=== PATIENT | female | born 1965 | race Asian ===

== ENCOUNTER 2016-07-05 09:04 | Outpatient (CLI) | payer MEDICAID ==
--- NOTE | 2016-07-05 10:51 | Mammography Report ---
BILATERAL DIGITAL SCREENING MAMMOGRAM with CAD : 07/05/16 09:04:00 CLINICAL: Routine screening.Known bilateral cysts. COMPARISON:05/05/15 FINDINGS: The breasts are heterogeneously dense, which may obscure small masses.Previously documented cyst in the right breast are unchanged. The previous palpable left cyst has resolved. No mass, architectural distortion or suspicious calcifications. IMPRESSION: No mammographic evidence of malignancy. BI-RADS CATEGORY: 2 -- Benign RECOMMENDATION: Routine mammographic screening in one year. COMMENT: Patient follow-up letters are generated by our [employer] application.
== END 2016-07-05 09:05 | disposition home or self-care (01) ==
LOC: SPVWC 09:04
PROVIDERS: ATTEND Family Medicine
DX: Z12.31 Encounter for screening mammogram for malignant neoplasm of breast (principal)
CPT/HCPCS: 77067; G0202

== ENCOUNTER 2017-04-03 08:20 | Outpatient (CLI) | payer MEDICAID ==
--- NOTE | 2017-04-03 16:39 | Mammography Report ---
BILATERAL DIGITAL DIAGNOSTIC MAMMOGRAM with CAD and RIGHT BREAST ULTRASOUND: 04/03/17 CLINICAL: Right breast lump and pain. COMPARISON:07/05/16 FINDINGS: The breasts are heterogeneously dense, which may obscure small masses. A partially circumscribed oval cyst correlates with a previously confirmed cyst and also correlates with the symptomatic palpable lump. no architectural distortion or suspicious calcifications. The left breast is negative. Ultrasound of the right breast (including all four quadrants and the retroareolar area) was performed and demonstrated multiple cysts and no solid mass. An oval cyst at 10 o'clock 4.5 cm from the nipple has a well developed wall and correlates with the tender palpable lump. It measures 3.1 x 2.3 x 2.7 cm compared to 2.7 x 2.5 x 1.0 cm on a previous ultrasound. Several additional smaller benign cysts of the right breast. IMPRESSION: Right benign cysts with a dominant palpable tender 3.1 cm cyst at 10 o'clock 4.5 cm from the nipple. BI-RADS CATEGORY: 2 -- Benign RECOMMENDATION: Ultrasound guided needle aspiration of the symptomatic cyst in the right breast. ACR BI-RADS MAMMOGRAPHIC CODES: 0 = Needs additional imaging evaluation; 1 = Negative; 2 = Benign; 3 = Probably benign; 4 = Suspicious; 5 = Malignant; 6 = Known biopsy-proven malignancy COMMENT: 1. Dense breast tissue, i.e., adenosis, fibrocystic changes, etc., may obscure an underlying neoplasm. 2. Approximately 10% of cancers are not detected with mammography. 3. A negative mammography report should not delay biopsy if a clinically suspicious mass is present. COMMENT: Patient follow-up letters are generated by our [employer] application.
== END 2017-04-03 08:21 | disposition home or self-care (01) ==
LOC: SPVWC 08:20
PROVIDERS: ATTEND Family Medicine
DX: N60.01 Solitary cyst of right breast (principal)
CPT/HCPCS: 77066

== ENCOUNTER 2017-12-05 10:00 | Observation (INO) | payer MEDICAID ==
--- NOTE | 2017-12-05 10:42 | Anesthesia Consultation ---
Anesthesia Consult and Med Hx Date of service: 12/05/17 - Airway Anesthetic Teeth Evaluation: Good ROM Head & Neck: Adequate Mental/Hyoid Distance: Adequate Mallampati Class: Class II Intubation Access Assessment: Probably Good - Pulmonary Exam CTA: Yes - Cardiac Exam Cardiac Exam: RRR - Pre-Operative Health Status ASA Pre-Surgery Classification: ASA2 Proposed Anesthetic Plan: General Nerve Block: tap block - Cardiovascular System Hx Hypertension: Yes (x 5yrs) - Central Nervous System Hx Psychiatric Problems: No - Hematic Hx Anemia: Yes - Other Systems Hx Alcohol Use: Yes (Occas) Hx Cancer: No
[2017-12-05 10:52] LABS: Basophils # (Auto) 0.1 K/mm3 (0.0-0.1); Basophils % (Auto) 1.3 % (0.0-1.8); Eosinophils # (Auto) 0.2 K/mm3 (0.0-0.4); Eosinophils % (Auto) 2.9 % (0.0-4.3); Hematocrit 32.8 % (30.3-42.9); Hemoglobin 10.1 gm/dl (10.1-14.3); Lymphocytes # (Auto) 1.5 K/mm3 (1.2-5.4); Mean Corpuscular HGB Conc 31 % (30-34); Mean Corpuscular Volume 74 fl (79-97); Monocytes # (Auto) 0.6 K/mm3 (0.0-0.8); Monocytes % (Auto) 7.4 % (0.0-7.3); Platelet Count 478 K/mm3 (140-440); Red Blood Count 4.42 M/mm3 (3.65-5.03); Red Cell Distribution Width 17.7 % (13.2-15.2)
[2017-12-05 10:53] LABS: Mean Corpuscular Hemoglobin 23 pg (28-32)
[2017-12-05 11:19] LABS: BUN/Creatinine Ratio 13; Blood Urea Nitrogen 9 mg/dL (7-17); Calcium 9.3 mg/dL (8.4-10.2); Hemolysis Index 2
[2017-12-09] MEDS ORDERED: VERSED IV NR (06:00)
[2017-12-09] MEDS ORDERED: PEPCID IV NR (06:00)
[2017-12-09] MEDS ORDERED: TRANSDERM-SCOP TD NR (06:00)
[2017-12-09] MEDS ORDERED: LACTATED RINGERS 1,000 ML IV SCH ×2 (06:00→11:00)
[2017-12-09] MEDS ORDERED: NEURONTIN PO NR (06:00)
--- NOTE | 2017-12-09 08:06 | History and Physical Report ---
History of Present Illness Date of examination: 12/09/17 Date of admission: 12/09/17 07:36 Chief complaint: Post menopausal bleeding with uterine fibroids History of present illness: Hero Mobley is a 52-year-old black female LMP 11/24/2017 who presents for surgical evaluation of postmenopausal bleeding with uterine fibroids. Pelvic ultrasound showed the uterus to be measuring 15 x 8 x 7 cm with 6 fibroids, an endometrial biopsy was benign. Patient is therefore scheduled for a Total Abdominal Hysterectomy and she desires ovarian conservation. 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 Family/Genetic History: none Social history: no significant social history Medications and Allergies Allergies Allergy/AdvReac Type Severity Reaction Status Date / Time amoxicillin Allergy Rash Verified 12/02/17 17:05 Home Medications Medication Instructions Recorded Confirmed Last Taken Type Aspirin [Aspirin EC] 81 mg PO DAILY 12/02/17 12/02/17 11/30/17 History Cholecalciferol (Vitamin D3) 5,000 unit PO DAILY 12/02/17 12/02/17 12/08/17 History [Vitamin D3] Ferrous Sulfate [Iron] 325 mg PO BID 12/02/17 12/02/17 12/08/17 History Losartan/Hydrochlorothiazide 1 tab PO DAILY 12/02/17 12/02/17 12/08/17 History Metformin HCl 1,000 mg PO BID 12/02/17 12/02/17 12/08/17 History Ondansetron [Zofran TAB] 4 mg PO Q8HR PRN 12/02/17 12/02/17 12/08/17 History Ranitidine HCl [Zantac 150 MG TAB] 150 mg PO BID 12/02/17 12/02/17 12/08/17 History Terbinafine (Nf) [LamiSIL] 250 mg PO QDAY PRN 12/02/17 12/02/17 12/08/17 History amLODIPine [Norvasc] 5 mg PO DAILY 12/02/17 12/09/17 12/09/17 06:30 History Active Meds: Active Medications Celecoxib (Celebrex) 200 mg PO PREOP NR Stop: 12/09/17 23:59 Famotidine (Pepcid) 20 mg IV PREOP NR Stop: 12/09/17 23:59 Gabapentin (Neurontin) 300 mg PO PREOP NR Stop: 12/09/17 23:59 Lactated Ringer's (Lactated Ringers) 1,000 mls @ 100 mls/hr IV DIRECT KEITH Midazolam HCl (Versed) 2 mg IV PREOP NR Stop: 12/09/17 23:59 Scopolamine (Transderm-Scop) 1 each TD PREOP NR Stop: 12/09/17 23:59 Review of Systems All systems: negative - Vital Signs Vital signs: Vital Signs Temp Pulse Resp BP 98 F 84 18 160/92 12/05/17 10:30 12/05/17 10:30 12/05/17 10:30 12/05/17 10:30 Temp Pulse Resp BP Pulse Ox 98 F 84 18 160/92 12/05/17 10:30 12/05/17 10:30 12/05/17 10:30 12/05/17 10:30 - Physical Exam Breasts: Positive: deferred Cardiovascular: Regular rate Lungs: Positive: Clear to auscultation Abdomen: Positive: normal appearance, mass Genitourinary (Female): Positive: normal external genitalia Vagina: Positive: normal moisture Uterus: Positive: enlarged Extremities: Positive: normal Results Result Diagrams: 12/05/17 10:35 12/05/17 10:35 All other labs normal. Ultrasound: report reviewed Assessment and Plan - Patient Problems (1) Postmenopausal bleeding Onset Date: 12/09/17 Current Visit: Yes Status: Acute Plan to address problem: A: Postmenopausal bleeding Uterine fibroids Chronic hypertension Diabetes mellitus P: Will admit for a Total Abdominal Hysterectomy with bilateral salpingectomy (2) Intramural uterine fibroid Onset Date: 12/09/17 Current Visit: Yes Status: Acute (3) Hypertension Onset Date: 12/09/17 Current Visit: Yes Status: Acute Qualifiers: Hypertension type: essential hypertension Qualified Code(s): I10 - Essential (primary) hypertension (4) Diabetes mellitus Onset Date: 12/09/17 Current Visit: Yes Status: Acute Qualifiers: Diabetes mellitus type: type 2 Diabetes mellitus 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
[2017-12-09] MEDS ORDERED: GARAMYCIN 160 MG in NACL 0.9% 100 ML IV SCH (08:15)
[2017-12-09] MEDS ORDERED: LACTATED RINGERS 1,000 ML ONE ×2 (08:55→11:28)
[2017-12-09] MEDS ORDERED: DIPRIVAN 10 MG/ML IV ONE (08:59)
[2017-12-09] MEDS ORDERED: CLEOCIN 600 MG/50 mL 600 MG/50 ML BAG IV SCH (09:00)
[2017-12-09] MEDS ORDERED: TRANSDERM-SCOP TD ONE (09:36)
[2017-12-09] MEDS ORDERED: NEURONTIN ONE (09:37)
[2017-12-09] MEDS ORDERED: PEPCID IV ONE (09:37)
[2017-12-09] MEDS ORDERED: VERSED ONE (09:37)
[2017-12-09] MEDS ORDERED: SUBLIMAZE ONE ×2 (09:51→10:48)
[2017-12-09] MEDS ORDERED: MARCAINE 0.5% INFILTRATI ONE (09:56)
[2017-12-09] MEDS ORDERED: ACD-A 500 ML IV ONE (10:35)
[2017-12-09] MEDS ORDERED: NACL 0.9% IR ONE (10:50)
[2017-12-09] MEDS ORDERED: DILAUDID IV PRN ×2 (10:51→12:43)
[2017-12-09] MEDS ORDERED: ZOFRAN IV PRN ×2 (10:51→12:05)
--- NOTE | 2017-12-09 10:51 | Anesthesia Day of Surgery ---
Anesthesia Day of Surgery - Day of Surgery Patient Examined: Yes Patient H&P Reviewed: Yes Patient is NPO: Yes
[2017-12-09] MEDS ORDERED: XYLOCAINE MPF 2% ONE (11:08)
[2017-12-09] MEDS ORDERED: QUELICIN ONE (11:09)
[2017-12-09] MEDS ORDERED: ZEMURON IV ONE (11:09)
[2017-12-09] MEDS ORDERED: DECADRON ONE (11:09)
[2017-12-09] MEDS ORDERED: ZOFRAN ONE (11:09)
[2017-12-09] MEDS ORDERED: ROBINUL ONE (11:10)
[2017-12-09] MEDS ORDERED: BLOXIVERZ ONE (11:10)
[2017-12-09] MEDS ORDERED: NORCO 5/325 PO PRN (12:05)
[2017-12-09] MEDS ORDERED: TYLENOL PO PRN (12:05)
--- NOTE | 2017-12-09 12:34 | Operative Report ---
Operative Report Operative Report: Date of procedure: 12/09/2017 Pre-operative diagnosis: 1. Postmenopausal bleeding 2. Symptomatic uterine fibroids Post-operative diagnosis: Same Procedure name(s): Total abdominal hysterectomy with bilateral salpingectomy Surgeon: Bobby Armendariz MD Batter Depositor: Lo De Leon CSA Anesthesia: CRISTA Block followed by general endotracheal intubation by Dr. Zee EBL: 100 mL Findings: A 14-16 week size multi-myomatous uterus with normal tubes and atrophic ovaries bilaterally. Procedure: After the patient was first correctly identified and after general anesthesia was administered she was prepped and draped in usual in the usual sterile fashion and placed in the dorsolithotomy position. The skin knife was used to make a transverse skin incision. The incision was extended down to the layer of the fascia which was nicked in the midline and extended laterally using Bovie cautery. The rectus muscles were dissected off the rectus fascia both superiorly and inferiorly, the rectus bellies in the midline and the peritoneum was entered under direct visualization. Exploration of the pelvic organs found the uterus to be enlarged and the tubes and ovaries were normal bilaterally. Next the bowels were packed back and the right round ligament was clamped, cauterized and cut using the Enseal device. The right utero-ovarian ligament was also clamped, cauterized and cut, thus freeing the right ovary from the right uterine sidewall. The same procedure was performed on the left. The left round ligament was clamped, cauterized and cut using the Enseal device, and the left utero-ovarian ligament was clamped, cauterized and cut thus freeing the left ovary from the left uterine sidewall. The uterine vessels were then skeletonized bilaterally, and the bladder flap was taken down anteriorly. The uterine vessels were then doubly clamped cut and suture ligated bilaterally, and the cardinal ligaments were sequentially clamped cut and suture ligated down to the level of the uterosacral ligaments. The cervix was then amputated from the vaginal cuff and the specimen was handed off the surgical field. The vaginal cuff was then made hemostatic using several sutures of 0 Vicryl suture in a [id number] configuration. After excellent hemostasis was assured copious amounts of irrigation was then performed. The Tisseel sealant was then sprayed across the vaginal cuff and the superior pedicles bilaterally and after excellent hemostasis was assured the procedure was considered complete. All instruments removed from abdomen, and the peritoneum was closed using 0 Vicryl suture in a running interlocking fashion and the rectus muscles were also loosely re-approximated using 0 Vicryl suture in a [id number] configuration. The fascia was then re-approximated using # 1 Vicryl suture in a running interlocking fashion, the subcutaneous layer made hemostatic using Bovie cautery and the skin edges re-approximated using 4-0 Vicryl suture in a sub-cuticular fashion. Patient tolerated the procedure well was transported to recovery room in stable condition.
--- NOTE | 2017-12-09 12:44 | Post Anesthesia Evaluation ---
- Post Anesthesia Evaluation Patient Participated: Yes Airway Patent: Yes Stable Respiratory Function: Yes Nausea/Vomiting: No Temp > 96.8F: Yes Pain Manageable: Yes Adequeate Hydration: Yes Anesthesia Complications: No
[2017-12-09] MEDS ORDERED: TORADOL ONE (12:46)
[2017-12-09] MEDS ORDERED: DILAUDID ONE (12:47)
[2017-12-09] MEDS: TORADOL IV SCH ×2 (12:48→18:39)
[2017-12-09] MEDS ORDERED: D5LR 1,000 ML IV SCH (13:00)
[2017-12-09] MEDS: GLUCOPHAGE PO SCH (17:54)
[2017-12-09] MEDS ORDERED: GLUCOPHAGE ONE (18:01)
[2017-12-09] MEDS: CLEOCIN 600 MG/50 mL 600 MG/50 ML BAG IV SCH (18:40)
[2017-12-09] MEDS ORDERED: AFLURIA QUAD 2018-2019 SYRINGE IM ONE (19:32)
[2017-12-09] MEDS: GARAMYCIN/NS 80 MG/100 ML 100 ML IV SCH (20:13)
[2017-12-09] MEDS: HumuLIN R SUB-Q SCH (21:55)
[2017-12-09] MEDS ORDERED: D50W (25GM) Syringe IV PRN (23:44)
[2017-12-10] MEDS: TORADOL IV SCH ×3 (02:15→13:00)
[2017-12-10] MEDS: CLEOCIN 600 MG/50 mL 600 MG/50 ML BAG IV SCH (02:19)
[2017-12-10] MEDS: GARAMYCIN/NS 80 MG/100 ML 100 ML IV SCH (03:00)
[2017-12-10 04:00] LABS: Hemoglobin 9.2 gm/dl (10.1-14.3)
[2017-12-10] MEDS: PERCOCET 5/325 PO PRN ×3 (06:10→21:30)
[2017-12-10] MEDS: HumuLIN R SUB-Q SCH ×3 (07:30→23:06)
--- NOTE | 2017-12-10 08:48 | Progress Note ---
Assessment and Plan - Patient Problems (1) Postmenopausal bleeding Onset Date: 12/09/17 Current Visit: Yes Status: Resolved (2) Intramural uterine fibroid Onset Date: 12/09/17 Current Visit: Yes Status: Resolved (3) Hypertension Onset Date: 12/09/17 Current Visit: Yes Status: Chronic Qualifiers: Hypertension type: essential hypertension Qualified Code(s): I10 - Essential (primary) hypertension (4) Diabetes mellitus Onset Date: 12/09/17 Current Visit: Yes Status: Chronic Qualifiers: Diabetes mellitus type: type 2 Diabetes mellitus nursing home insulin use: without nursing home use Diabetes mellitus complication status: with hyperglycemia Qualified Code(s): E11.65 - Type 2 diabetes mellitus with hyperglycemia (5) S/P GIOVANNY (total abdominal hysterectomy) Onset Date: 12/10/17 Current Visit: Yes Status: Resolved Plan to address problem: A: S/P GIOVANNY - POD #1 Doing well Asymptomatic anemia - stable P: Continue RPOC Anticipate discharge in 24-48hrs Subjective - Subjective Date of service: 12/10/17 Principal diagnosis: s/p GIOVANNY - POD #1 Interval history: Pt is feeling well s/p a Total Abdominal Hysterectomy. Discussed findings at surgery. Pt complains of a sore throat otherwise tolerating a liquid diet without nausea or vomiting. Patient reports: appetite normal, voiding normally, pain well controlled, ambulating normally, no dizzy ambulation, no flatus, no nauseated Objective - Vital Signs Latest vital signs: Vital Signs Temp Pulse Pulse Resp BP Pulse Ox 12/10/17 07:33 98.8 F 78 20 111/60 94 12/10/17 06:10 18 12/10/17 04:03 98.4 F 80 16 110/62 100 12/10/17 02:15 18 12/09/17 23:28 98.6 F 85 15 103/55 99 12/09/17 19:45 18 98 12/09/17 19:26 98.7 F 96 H 8 L 119/75 100 12/09/17 19:09 18 12/09/17 16:28 98.2 F 93 H 20 106/70 99 12/09/17 15:30 16 12/09/17 13:30 72 16 100 12/09/17 13:15 85 16 119/76 100 12/09/17 13:00 80 13 124/75 100 12/09/17 12:45 79 18 127/79 100 12/09/17 12:40 91 H 13 140/74 100 12/09/17 12:35 78 17 133/79 100 12/09/17 12:30 79 19 137/80 100 12/09/17 12:25 81 19 130/79 100 12/09/17 12:21 97.2 F L 81 16 127/77 100 12/09/17 10:20 88 14 140/88 100 12/09/17 10:15 87 12 139/95 100 12/09/17 10:10 92 H 15 145/82 100 12/09/17 10:05 87 12 161/93 98 12/09/17 10:00 87 14 153/89 100 12/09/17 09:55 88 14 163/93 100 12/09/17 09:30 98.0 F 84 18 154/88 100 Intake and Output 12/09/17 12/10/17 12/10/17 22:59 06:59 14:59 Intake Total 400 Output Total 1800 1150 Balance -1400 -1150 Intake: IV 150 CLEOCIN 600 MG/50 mL 600 50 mg In 50 ml @ 100 mls/hr IV Q8H KEITH Rx#:[id number] Garamycin/Ns 80 mg/100 ml 100 100 ml @ 200 mls/hr IV Q8H KEITH Rx#:[id number] Oral 250 Output: Urine 1800 1150 Indwelling Catheter 1800 1000 Void 150 Other: Total, Intake Amount 250 Total, Output Amount 900 150 Voiding Method Indwelling Catheter # Voids Void 1 Weight 92.8 kg - Exam Breasts: Present: deferred Cardiovascular: Present: Regular rate Lungs: Present: Clear to auscultation Abdomen: Present: normal appearance, soft Extremities: Present: normal Incision: Present: normal, dry, intact - Labs Labs: Abnormal lab results 12/09/17 12/09/17 12/09/17 Range/Units 09:15 12:30 17:36 Hgb (10.1-14.3) gm/dl Hct (30.3-42.9) % POC Glucose 167 H 214 H 236 H (70-105) 12/09/17 12/10/17 12/10/17 Range/Units 21:55 03:45 06:01 Hgb 9.2 L (10.1-14.3) gm/dl Hct 30.0 L (30.3-42.9) % POC Glucose 245 H 108 H (70-105) Laboratory Tests 12/05/17 12/05/17 12/05/17 10:35 10:35 10:35 WBC 8.4 RBC 4.42 Hgb 10.1 Hct 32.8 MCV 74 L MCH 23 L MCHC 31 RDW 17.7 H Plt Count 478 H Lymph % (Auto) 18.0 Starr % (Auto) 7.4 H Eos % (Auto) 2.9 Baso % (Auto) 1.3 Lymph # 1.5 Starr # 0.6 Eos # 0.2 Baso # 0.1 Seg Neutrophils % 70.4 H Seg Neutrophils # 6.0 Sodium 140 Potassium 3.6 Chloride 100.0 Carbon Dioxide 27 Anion Gap 17 BUN 9 Creatinine 0.7 Estimated GFR > 60 BUN/Creatinine Ratio 13 Glucose 170 H POC Glucose Calcium 9.3 HCG, Qual Negative Blood Type Antibody Screen 12/09/17 12/09/17 12/09/17 09:00 09:15 12:30 WBC RBC Hgb Hct MCV MCH MCHC RDW Plt Count Lymph % (Auto) Starr % (Auto) Eos % (Auto) Baso % (Auto) Lymph # Starr # Eos # Baso # Seg Neutrophils % Seg Neutrophils # Sodium Potassium Chloride Carbon Dioxide Anion Gap BUN Creatinine Estimated GFR BUN/Creatinine Ratio Glucose POC Glucose 167 H 214 H Calcium HCG, Qual Blood Type B POSITIVE Antibody Screen Negative 12/09/17 12/09/17 12/10/17 17:36 21:55 03:45 WBC RBC Hgb 9.2 L Hct 30.0 L MCV MCH MCHC RDW Plt Count Lymph % (Auto) Starr % (Auto) Eos % (Auto) Baso % (Auto) Lymph # Starr # Eos # Baso # Seg Neutrophils % Seg Neutrophils # Sodium Potassium Chloride Carbon Dioxide Anion Gap BUN Creatinine Estimated GFR BUN/Creatinine Ratio Glucose POC Glucose 236 H 245 H Calcium HCG, Qual Blood Type Antibody Screen 12/10/17 06:01 WBC RBC Hgb Hct MCV MCH MCHC RDW Plt Count Lymph % (Auto) Starr % (Auto) Eos % (Auto) Baso % (Auto) Lymph # Starr # Eos # Baso # Seg Neutrophils % Seg Neutrophils # Sodium Potassium Chloride Carbon Dioxide Anion Gap BUN Creatinine Estimated GFR BUN/Creatinine Ratio Glucose POC Glucose 108 H Calcium HCG, Qual Blood Type Antibody Screen
[2017-12-10] MEDS: NORVASC PO SCH (10:00)
[2017-12-10] MEDS ORDERED: CEPACOL X STRENGTH MM PRN (10:00)
[2017-12-10] MEDS: COLACE PO SCH ×2 (10:07→21:30)
[2017-12-10] MEDS: GLUCOPHAGE PO SCH ×2 (10:08→17:40)
[2017-12-10] MEDS: MILK OF MAGNESIA PO PRN (20:07)
[2017-12-11] MEDS: MILK OF MAGNESIA PO PRN ×2 (00:14→05:36)
[2017-12-11] MEDS: PERCOCET 5/325 PO PRN (03:53)
--- NOTE | 2017-12-11 07:54 | Progress Note ---
Assessment and Plan - Patient Problems (1) Postmenopausal bleeding Onset Date: 12/09/17 Current Visit: Yes Status: Resolved (2) Intramural uterine fibroid Onset Date: 12/09/17 Current Visit: Yes Status: Resolved (3) Hypertension Onset Date: 12/09/17 Current Visit: Yes Status: Chronic Qualifiers: Hypertension type: essential hypertension Qualified Code(s): I10 - Essential (primary) hypertension (4) Diabetes mellitus Onset Date: 12/09/17 Current Visit: Yes Status: Chronic Qualifiers: Diabetes mellitus type: type 2 Diabetes mellitus prison insulin use: without prison use Diabetes mellitus complication status: with hyperglycemia Qualified Code(s): E11.65 - Type 2 diabetes mellitus with hyperglycemia (5) S/P GIOVANNY (total abdominal hysterectomy) Onset Date: 12/10/17 Current Visit: Yes Status: Resolved Plan to address problem: A: S/P GIOVANNY - POD #2 Doing well Asymptomatic anemia - stable P: May go home today. Subjective - Subjective Date of service: 12/11/17 Principal diagnosis: s/p GIOVANNY - POD #2 Interval history: Pt is feeling well s/p a Total Abdominal Hysterectomy. She is tolerating a reg diet without nausea or vomiting, ambulating and voiding without difficulty. Patient reports: appetite normal, voiding normally, pain well controlled, flatus , ambulating normally, no dizzy ambulation, no nauseated Objective - Vital Signs Latest vital signs: Vital Signs Temp Pulse Resp BP BP Pulse Ox 12/11/17 04:15 98.0 F 76 18 101/56 12/11/17 00:00 98.2 F 78 20 96/50 12/10/17 20:05 98.2 F 84 20 130/76 12/10/17 16:39 98.4 F 81 18 124/68 98 12/10/17 11:21 98.7 F 78 20 117/75 97 Intake and Output 12/10/17 12/11/17 12/11/17 22:59 06:59 14:59 Intake Total 240 Balance 240 Intake: Oral 240 Other: Total, Intake Amount 240 Voiding Method Toilet # Voids Void 1 1 - Exam Abdomen: Present: normal appearance, soft, normal bowel sounds Extremities: Present: normal Incision: Present: normal, dry, intact - Labs Labs: Abnormal lab results 12/10/17 12/10/17 12/10/17 Range/Units 08:59 11:24 16:42 POC Glucose 141 H 156 H 142 H (70-105) 12/10/17 12/11/17 Range/Units 22:02 06:43 POC Glucose 144 H 153 H (70-105)
[2017-12-11 08:06] VITALS: BP 126/76
--- NOTE | 2017-12-11 08:16 | Discharge Summary ---
Providers - Providers Date of Admission: 12/09/17 07:36 Date of discharge: 12/11/17 Attending physician: IVY CARLSON 12/09/17 23:44 Consult to Dietitian/Nutrition [CONS] Routine Physician Instructions: Reason For Exam: Reason for Consult: Diet education Primary care physician: BINTA PENA Hospitalization Reason for admission: other (Postmenopausal bleeding; Uterine fibroids) Procedure: other (Total Abdominal Hysterectomy) Incision: normal, dry, intact Other procedures: none complications: none Discharge diagnosis: other (s/p GIOVANNY) Hospital course: Pt Meliza Mobley is a 52-year-old black female LMP 11/24/2017 presented for surgical evaluation of postmenopausal bleeding with uterine fibroids. Pelvic ultrasound showed the uterus to be measure 15 x 8 x 7 cm with 6 fibroids, an endometrial biopsy was benign. She underwent an uncomplicated Total Abdominal Hysterectomy with Bilateral Salpingectomy and tolerated the procedure well. By POD #2 she was tolerating a reg diet without nausea or vomiting, ambulating and voiding without difficulty, and therefore discharged to home on POD #2 in stable condition. Condition at discharge: Good Disposition: DC-01 TO HOME OR SELFCARE - Discharge Diagnoses (1) Postmenopausal bleeding Status: Resolved (2) Intramural uterine fibroid Status: Resolved (3) Hypertension Status: Chronic Qualifiers: Hypertension type: essential hypertension Qualified Code(s): I10 - Essential (primary) hypertension (4) Diabetes mellitus Status: Chronic Qualifiers: Diabetes mellitus type: type 2 Diabetes mellitus jail insulin use: without jail use Diabetes mellitus complication status: with hyperglycemia Qualified Code(s): E11.65 - Type 2 diabetes mellitus with hyperglycemia (5) S/P GIOVANNY (total abdominal hysterectomy) Status: Resolved Plan - Discharge Medications Prescriptions: Ferrous Sulfate [Feosol 325 MG tab] 325 mg PO BID #60 tablet HYDROcodone/APAP 5-325 [[place] 5-325 mg TAB] 1 each PO Q6HR PRN #30 tablet PRN Reason: Pain, Moderate (4-6) Ibuprofen [Motrin] 800 mg PO Q8HR PRN #30 tablet PRN Reason: Moder Pain Unrelieved By [place] - Provider Discharge Summary Activity: routine, no sex for 6 weeks, no heavy lifting 4 weeks, no strenuous exercise Diet: routine Instructions: routine Additional instructions: [] Smoking cessation referral if applicable(refer to patient education folder for contact #) [] Refer to [facility] Booklet Call your doctor immediately for: * Fever > 100.5 * Heavy vaginal bleeding ( >1 pad per hour) * Severe persistent headache * Shortness of breath * Reddened, hot, painful area to leg or breast * Drainage or odor from incision. * Keep incision clean and dry at all times and follow doctor's instructions regarding bathing/showering - Follow up plan Follow up: BINTA PENA MD [Primary Care Provider] - 7 Days IVY CARLSON MD [Staff Physician] - 14 Days
[2017-12-11] MEDS: HumuLIN R SUB-Q SCH (09:29)
[2017-12-11] MEDS: NORVASC PO SCH (10:00)
[2017-12-11] MEDS: GLUCOPHAGE PO SCH (10:08)
[2017-12-11] MEDS: COLACE PO SCH (10:09)
[2017-12-11] MEDS: TORADOL IV SCH (10:09)
== END 2017-12-11 10:50 | disposition home or self-care (01) ==
LOC: UNDOADMIN 10:01 → 3A 10:01 → INTOOBSV 12-09 07:36 → OB 12-09 12:50
PROVIDERS: ADMIT Obstetrics & Gynecology; ATTEND Obstetrics & Gynecology
DX: N92.4 Excessive bleeding in the premenopausal period (principal); D25.9 Leiomyoma of uterus, unspecified; I10 Essential (primary) hypertension; D25.1 Intramural leiomyoma of uterus
CPT/HCPCS: 36415; 58150; 64450; 80048; 82962; 84703; 85014; 85018; 85025; 86850; 86900; 86901; 88307; 96365; 96366; 96367; 96372; 96375; 96376; C9250; G0378; G0379; J0330; J1100; J1170; J1580; J1885; J2250; J2405; J2704; J2710; J3010; J7120; J7121; 90686; J1815

== ENCOUNTER 2018-07-24 13:16 | Outpatient (CLI) | payer MEDICAID ==
--- NOTE | 2018-07-24 14:38 | Mammography Report ---
BILATERAL DIGITAL SCREENING MAMMOGRAM with CAD : 07/24/18 13:16:00 CLINICAL: Routine screening. COMPARISON:07/05/16 FINDINGS: The breasts are heterogeneously dense, which may obscure small masses.A right upper inner biopsy clip. No mass, architectural distortion or suspicious calcifications. IMPRESSION: No mammographic evidence of malignancy. BI-RADS CATEGORY: 2 -- Benign RECOMMENDATION: Routine mammographic screening in one year. COMMENT: Patient follow-up letters are generated by our [employer] application.
== END 2018-07-24 13:17 | disposition home or self-care (01) ==
LOC: SPVWC 13:16
PROVIDERS: ATTEND Family Medicine
DX: Z12.31 Encounter for screening mammogram for malignant neoplasm of breast (principal); I10 Essential (primary) hypertension; E66.9 Obesity, unspecified; E11.9 Type 2 diabetes mellitus without complications; Z86.2 Personal history of diseases of the blood and blood-forming organs and certain disorders involving the immune mechanism
CPT/HCPCS: 77067